=== PATIENT | female | born 1980 | race Two or more races ===

== ENCOUNTER 2024-04-27 09:14 | Outpatient (RCR) | payer MEDICAID, SELFPAY ==
--- NOTE | 2024-04-27 09:42 | PTNOTE_ITS ---
PT OP Initial Eval Patient Information Outpatient Physical Therapy Treatment Date: 04/27/24 Visit Reasons: Fracture of right little finger Medical Diagnosis: S62.636A Treatment Dx #1: Dec ROM R 5th digit DIP Start of Care: 04/27/24 Date of Onset: 08/06/23 Smoking Status Smoking Status: Never smoker Initial Assessment Subjective: Pt is 43 yr old bruneian speaking female s/p displaced FX of distal phalanx of R 5th digit and subsequent k wire pinning that was removed 09/17/23. Pt reports that digit doesn't bend fully with making a fist and weakness with gripping. She can do ADL's and HH chores sometimes with pain in that digit. 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 Pt is lacking 5 lbs of mobile heavy equipment mechanic strength compared to the L hand. Pt may benefit from skilled therapy to improve DIP flexion but rehab potential is guarded due to time since K-wire removal in September. Short Term and [facility] Goals 1. Ind with HEP 2. Improved DIP flexion to at least 50 deg to make full fist 3. Improved mobile heavy equipment mechanic strength of R to at least 45 lbs Treatment Plan 1. Manual therapy ? 2. Therex ? 3. Modalities as indicated, estim, moist heat, ice Frequency and Duration: 1-2x a week for 12 visits Certification Dates: 04/27/24 to 07/24/24 Procedure Charges OP PT Eval Mod Complex 30 minutes: Yes
== END 2024-05-10 23:59 | disposition home or self-care (01) ==
LOC: CPTX 09:14
PROVIDERS: PCP Surgery; Referring Provider Surgery; Visit Provider Surgery
DX: R53.1 Weakness (principal); S62.636D Displaced fracture of distal phalanx of right little finger, subsequent encounter for fracture with routine healing; X58.XXXD Exposure to other specified factors, subsequent encounter
CPT/HCPCS: 97162

== ENCOUNTER 2024-10-27 01:31 | Emergency (ER) | payer MEDICAID, SELFPAY ==
[2024-10-27 01:31] VITALS: BMI 30.2
[2024-10-27 02:11] VITALS: BP 124/79; PULSE 78; RESP 18; TEMP 37.2; O2SAT 98
--- NOTE | 2024-10-27 02:16 | XR_ITS ---
Examination: OB Transvaginal ultrasound of the pelvis, complete Technique: Transvaginal sonographic images pelvis performed using brower scale imaging Exam date and time: October 27, 2024 0242 hours INDICATIONS: Vaginal bleeding beginning one hour ago FINDINGS: Uterus 11.1 cm Pole 1.23 cm corresponds to 7 weeks 3 days gestational age. Cardiac motion 158 BPM Right ovary 3.0 cm arterial flow Left ovary obscured by bowel gas IMPRESSION: Viable intrauterine gestation 7 weeks 3 days.
[2024-10-27 03:30] LABS: Collection Type, Urine Clean Catch
[2024-10-27 03:42] LABS: Basophils % (Auto) 0 % (0-2.5); Eosinophils % (Auto) 0 % (0-10); Hematocrit 30.1 % (36.0-46.0); Hemoglobin 10.1 g/dL (12.0-16.0); Immature Granulocytes % (Auto) 0 % (0-0); Immature Granulocytes Auto 0.03 Thou/mm3 (0.00-0.00); Lymphocytes # (Auto) 1.3 Thou/mm3 (1.0-4.8); Lymphocytes % (Auto) 13 % (10-50); Mean Corpuscular HGB Conc 33.6 g/dl (31.0-37.0); Mean Corpuscular Hemoglobin 27.4 pg (25.0-35.0); Mean Corpuscular Volume 82 fL (80-100); Monocytes # (Auto) 0.6 Thou/mm3 (0.0-0.8); Monocytes % (Auto) 6 % (0-12); Neutrophils # (Auto) 8.1 Thou/mm3 (1.8-7.7); Neutrophils % (Auto) 81 % (37-80); Nucleated Red Blood Cell % 0 /100 WBC (0); Platelet Count 308 Thou/mm3 (140-440); RDW Standard Deviation 40.5 fL (36.4-46.3); Red Blood Count 3.69 Miln/mm3 (4.00-5.20); White Blood Count 10.1 Thou/mm3 (3.6-11.0)
[2024-10-27 03:46] LABS: Amorphous Crystals,Urine Present (Absent); Bacteria,Urine Rare; Bilirubin,Urine Negative (Negative); Blood,Urine 3+ (Negative); Clarity,Urine Clear (Clear/Hazy); Color,Urine Lt-Yellow (Lt Yel-Yel); Glucose, Urine Negative (Negative); Ketones,Urine Negative (Negative); Leukocyte Esterase,Urine Negative (Negative); Nitrite,Urine Negative (Negative); Protein,Urine Negative (Neg - Trace); RBC,Urine 9 /hpf (0-3); Squamous Epithelial Cell,Urine < 1 /hpf (0-5); Urobilinogen,Urine Negative mg/dL (0.0-1.0); WBC,Urine 1 /hpf (0-5)
[2024-10-27 04:06] LABS: Alanine Aminotransferase 23 U/L (10-49); Albumin, Serum 4.4 gm/dL (3.5-5.0); Albumin/Globulin Ratio 1.7 (1.2-2.2); Alkaline Phosphatase 93 U/L (46-116); Anion Gap 8 (7-16); Aspartate Amino Transferase 17 U/L (0-34); BUN/Creatinine Ratio 7 Ratio (12-20); Bilirubin,Total 0.4 mg/dL (0.3-1.2); Blood Urea Nitrogen < 5 mg/dL (9-23); Calcium 9.2 mg/dL (8.3-10.6); Calcium (Corrected) 9.2 mg/dL (8.5-10.1); Carbon Dioxide 23.8 mMol/L (20.0-31.0); Chloride 106 mMol/L (98-107); Creatinine (Component) 0.7 mg/dL (0.6-1.3); Estimated Creatinine Clearance 105.9 mL/min (>60); Globulin 2.6 gm/dL (2.3-3.5); Glucose 97 mg/dL (74-106); Osmolality,Calculated 272 (275-295); Potassium 3.4 mMol/L (3.4-5.1); Sodium 138 mMol/L (136-145); eGFR > 60 See Note
--- NOTE | 2024-10-27 04:51 | PRELIM_ITS ---
Obstetric ultrasound transvaginal. October 27, 2024 0242 hours Clinical history: Cramping/bleeding; 6 weeks. Technique: Real-time ultrasound was performed using Duplex scanning including arterial inflow, venous outflow, color and spectral Doppler analysis of both ovaries. Comparison: No prior study is available for comparison. Findings: There is an intrauterine gestation with a single live fetus of mean gestational age 7 weeks and 3 days based on a crown-rump length (CRL) of 1.2 cm. cardiac activity is present with a heart rate of 158 beats per minute. Estimated due date (JOSSUE) by ultrasound is 12 June 2025. The uterus measures 11 x 7 x 8.4 cm and is within normal limits for gestational age. The right ovary measures 2.9 x 2.3 x 2.2 cm (volume 8 cm??) and is unremarkable with normal arterial flow. The left ovary was not visualized due to overlying bowel gas. There is no free fluid in the pelvis. A cyst measuring 1.4 x 1.1 x 1.1 cm was seen in the cervix. Yolk sac is visualized. Impression: Intrauterine gestation with a single live fetus, consistent with 7 weeks and 3 days gestational age (CRL: 1.23 cm) heart rate: 158 bpm JOSSUE by ultrasound: 12-Jun-2025. Normal right ovary; left ovary not visualized. Cervical cyst noted. No free fluid in the pelvis. Report Electronically Signed By: Luca Meadows 10/27/2024 4:51:22 AM [EST]
[2024-10-27 04:52] LABS: Beta HCG,Quantitative 98246 mIU/mL (<5.0)
[2024-10-27 05:09] VITALS: BP 125/74; PULSE 74; RESP 18; TEMP 36.8; O2SAT 98
--- NOTE | 2024-10-27 05:22 | EDNOTE_ITS ---
ED OB Contraction Preg RMI/HPI General Chief complaint: Vaginal Bleeding Stated complaint: VAGINAL BLEEDING, 6 WKS Time Seen by Provider: 10/27/24 01:37 Arrival date/time: 10/27/24 01:31 44F at approximately 6 weeks and with no significant PMH presents to ED with 1 day of pelvic cramping and vaginal spotting. Patient denies dysuria. Limitations: no limitations Related Data Home Medications ?Medication ?Instructions ?Recorded ?Confirmed losartan 25 mg tablet 25 mg PO QDAY 04/08/2104/08 omeprazole 40 mg capsule,delayed 40 mg PO QDAY 1 04/08/21 release Previous Rx's ?Medication ?Instructions ?Recorded acetaminophen 325 mg capsule 650 mg (2 x 325 mg) PO QI D PRN 04/08/21 (Tylenol) fever or pain #30 caps Allergies Allergy/AdvReac Type Severity Reaction Status Date / Time No Known Allergies Allergy Verified 10/27/24 01:31 Review of Systems Review of Systems Systems Reviewed: All systems reviewed, normal except as documented Constitutional Constitutional: Reports system reviewed and no additional complaints, except as documented, Denies fever(s) and Denies headache(s) ENT Ears, Nose, Mouth, and Throat: Denies disequilibrium and Denies headache(s) Cardiovascular Cardiovascular: Reports system reviewed and no additional complaints, except as documented, Denies chest pain and Denies dyspnea Respiratory Respiratory: Reports system reviewed and no additional complaints, except as documented, Denies cough and Denies dyspnea Gastrointestinal Gastrointestinal: Reports system reviewed and no additional complaints, except as documented, Denies abdominal pain, Denies nausea and Denies vomiting Musculoskeletal Musculoskeletal: Reports as per HPI and Reports arthralgias Neurologic Neurologic: Reports system reviewed and no additional complaints, except as documented, Denies confusion, Denies disequilibrium and Denies headache(s) Psychiatric Psychiatric: Denies confusion Past Medical History Past Medical History CARDIAC: Negative Cardiac Disorders RESPIRATORY: Negative Asthma GENITOURINARY: Negative Renal Disease ENDOCRINE: Negative Diabetes Mellitus Type 2 HEMATOLOGIC: Negative Sickle Cell Disease Social History SMOKING STATUS: Never smoker ED Exam General Limitations: Present no limitations General appearance: Present alert and in no apparent distress Head Head exam: Present atraumatic Eye Eye exam: Present normal appearance, PERRL and EOMI ENT ENT exam: Present normal exam, normal oropharynx and mucous membranes moist Neck Neck exam: Present normal inspection, full ROM and trachea midline Chest Chest inspection: Present normal inspection and symmetric chest wall rise Respiratory Respiratory exam: Present normal lung sounds bilaterally Cardiovascular Cardiovascular exam: Present regular rate, normal rhythm and normal heart sounds Abdominal Exam Abdominal exam: Present soft and normal bowel sounds Extremities Exam Extremities exam: Present normal inspection and full ROM Back Exam Back exam: Present normal inspection and full ROM Neurological Exam Neurological exam: Present alert, oriented X3 and CN II-XII intact Psychiatric Psychiatric exam: Present normal affect and normal mood Skin Skin exam: Present warm, dry, intact and normal color Course Quality Measures none Orders Category Date Time Status US OB transvaginal Stat Exams 10/27/24 02:16 Taken ABO/RH Type Stat Lab 10/27/24 03:22 Completed Beta HCG,Quantitative Stat Lab 10/27/24 03:22 Completed CBC Stat Lab 10/27/24 03:22 Completed CMP [Comprehensive Metabolic Panel] Stat Lab 10/27/24 03:22 Completed UA [Urinalysis] Stat Lab 10/27/24 02:52 Completed Urine Culture Stat Lab 10/27/24 02:52 Received Vital Signs Vital signs: Vital Signs Temperature 99 F 10/27/24 02:11 Pulse Rate 78 10/27/24 02:11 Respiratory Rate 18 10/27/24 02:11 Blood Pressure 124/79 10/27/24 02:11 Pulse Oximetry (%) 98 10/27/24 02:11 Oxygen Delivery Method Room Air 10/27/24 02:11 O2 at 98% on RA and WNLs Vaginal Bleeding MDM Narrative MDM Narrative: 44F at approximately 6 weeks and with no significant PMH presents to ED with 1 day of pelvic cramping and vaginal spotting. Patient denies dysuria. Physical exam reveals well-appearing female. Patient is afebrile, calm, and alert. US normal IUP with normal FHR. Beta HCG around 90k and WNLs. B+. CMP and CBC unremarkable. 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 Patient data External records reviewed:: [facility] previous records Clinical information provided by:: patient Social determinants that could affect healthcare access:: none Patient has the following chronic illnesses:: none How is presenting disease/condition affected by chronic disease/condition?: no chronic disease Evaluation data The following diagnostics were reviewed and interpreted by me:: lab results and radiology exam(s) Lab and/or radiology exams considered but not ordered:: ordered Interpretation Summary: above Medications / Prescriptions Medications or Prescriptions considered but not ordered:: not ordered Medication administrations:: n/a Consultations Consultation(s) initiated? (list below): No Diagnosis Vaginal Bleeding Differential Diagnosis: missed , threatened , dysfunctional uterine bleeding, menometrorrhagia, incomplete , ectopic without intrauterine and vaginal bleeding Most likely diagnosis given after review of the tests above:: vaginal bleeding Admission Indicated Admission indicated?: not indicated Admission Request Was there a request for admission?: No Disposition Plan Disposition Plan: Discharge Discharge Attestation Discharge Attestation: The patient and all family members were given an opportunity to ask questions and understood the discharge instructions. Discharge instructions specifically effects, indications for sooner follow up or return to the emergency department, and the expected course of current diagnosis. Patient condition: Stable Discharge Plan Plan Patient Disposition: HOME (Self Care) Discharge Disposition comment: Stable Prescriptions/Referrals Prescriptions/Med Rec: No Action omeprazole 40 mg Capsule,Delayed Release(Dr/Ec) 40 mg PO QDAY losartan 25 mg Tablet 25 mg PO QDAY acetaminophen [Tylenol] 325 mg capsule 650 mg PO QID PRN (Reason: fever or pain) Qty: 30 0RF Referrals: Jossie Wren MD [Primary Care Provider] - In 1 week Problem List Clinical Impression: Vaginal bleeding Patient/Caregiver Discharge Instructions Education Materials: Bleeding During Early Additional Instructions: Please follow-up with PCP/OBGYN within 24-48 hours and return immediately if symptoms worsen. Can repeat HCG in 48-72 hours to see trend. Print Language: Japanese Stand Alone Forms: Patient Portal Info Letter ADDIE/DEYA Supervising Physician ELLA Supervising Physician: Dr. Cassidy
== END 2024-10-27 05:13 | disposition home or self-care (01) ==
PROVIDERS: Physician Assistant; Emergency Provider Emergency Medicine; PCP Obstetrics & Gynecology
DX: O20.9 Hemorrhage in early pregnancy, unspecified (principal); Z3A.01 Less than 8 weeks gestation of pregnancy
CPT/HCPCS: 36415; 76817; 80053; 81001; 84702; 85025; 86900; 86901; 87086; 99284

== ENCOUNTER 2025-01-12 16:41 | Emergency (ER) | payer MEDICAID, SELFPAY ==
[2025-01-12 16:44] VITALS: BMI 37.0
--- NOTE | 2025-01-12 16:48 | EKG_ITS ---
[facility] Test Date: 2025-01-12 Pat Name: VAL MOJICA Department: Room: - Gender: Female Decision Support Manager: : 1980 Requested By: ED Temporary Provider Order Number: [id number] Reading MD: ED Temporary Provider Measurements Intervals [place] Rate: 69 P: 54 [place]: 149 QRS: 28 QRSD: 88 T: 47 QT: 378 QTc: 406 Interpretive Statements SINUS RHYTHM No previous ECG available for comparison /store/S0/[id number]/ecg/[id number].pdf
--- NOTE | 2025-01-12 16:56 | PC.NURSE ---
CALLED [facility]. IF POWDER AND INHALED SUPPORTIVE CARE, O2 PRN, CXR, NEBS PRN, CARDIAC WORKUP FOR CHEST PAIN AND FOLOOW UP WITH OB DUE TO . IF INGESTED CAN GET N/V OR LUZ, IF GOT IN EYES THEN IRRIGATE X15 MINUTES AND THEN DO FLOURESENE EXAM.
[2025-01-12 16:59] VITALS: BP 145/86; PULSE 76; RESP 18; TEMP 37; O2SAT 96
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
[2025-01-12 17:20] LABS: Basophils # (Auto) 0.0 Thou/mm3 (0.0-0.2); Basophils % (Auto) 0 % (0-2.5); Eosinophils # (Auto) 0.1 Thou/mm3 (0.0-0.5); Eosinophils % (Auto) 1 % (0-10); Hematocrit 31.3 % (36.0-46.0); Hemoglobin 10.3 g/dL (12.0-16.0); Immature Granulocytes Auto 0.03 Thou/mm3 (0.00-0.00); Lymphocytes # (Auto) 1.7 Thou/mm3 (1.0-4.8); Lymphocytes % (Auto) 19 % (10-50); Mean Corpuscular HGB Conc 32.9 g/dl (31.0-37.0); Mean Corpuscular Hemoglobin 27.6 pg (25.0-35.0); Mean Corpuscular Volume 84 fL (80-100); Monocytes # (Auto) 0.7 Thou/mm3 (0.0-0.8); Monocytes % (Auto) 8 % (0-12); Neutrophils # (Auto) 6.3 Thou/mm3 (1.8-7.7); Neutrophils % (Auto) 71 % (37-80); Nucleated Red Blood Cell # 0.00 Thou/mm3 (0.00-0.00); Nucleated Red Blood Cell % 0 /100 WBC (0); Platelet Count 255 Thou/mm3 (140-440); RDW Standard Deviation 42.5 fL (36.4-46.3); Red Blood Count 3.73 Miln/mm3 (4.00-5.20); White Blood Count 9.0 Thou/mm3 (3.6-11.0)
[2025-01-12 17:37] LABS: Alanine Aminotransferase 15 U/L (10-49); Albumin, Serum 4.0 gm/dL (3.5-5.0); Albumin/Globulin Ratio 1.5 (1.2-2.2); Alkaline Phosphatase 231 U/L (46-116); Anion Gap 9 (7-16); Aspartate Amino Transferase 19 U/L (0-34); BUN/Creatinine Ratio 10 Ratio (12-20); Bilirubin,Total 0.2 mg/dL (0.3-1.2); Blood Urea Nitrogen 6 mg/dL (9-23); Calcium 9.9 mg/dL (8.3-10.6); Calcium (Corrected) 9.9 mg/dL (8.5-10.1); Carbon Dioxide 22.8 mMol/L (20.0-31.0); Chloride 105 mMol/L (98-107); Creatinine (Component) 0.6 mg/dL (0.6-1.3); Estimated Creatinine Clearance 122.6 mL/min (>60); Globulin 2.6 gm/dL (2.3-3.5); Glucose 89 mg/dL (74-106); Osmolality,Calculated 270 (275-295); Potassium 3.7 mMol/L (3.4-5.1); Sodium 137 mMol/L (136-145); Total Protein 6.6 gm/dL (5.7-8.2); Troponin I < 0.002 ng/mL (0.0-0.045); eGFR > 60 See Note
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
--- NOTE | 2025-01-12 19:25 | XR_ITS ---
Examination: Complete OB ultrasound greater than 14 weeks Date and time of exam: January 12, 2025, 1929 hrs. Indications: Headaches today, history pelvic cramping and bleeding Findings: Viable intrauterine single fetus with single amniotic sac presentation breech Cardiac motion 133 BPM Placenta anterior fundal grade 1 Umbilical cord insertion 3 vessel seen Amniotic fluid index adequate spine variable Cervix 4.2 cm Right ovary obscured by bowel gas Left ovary 3.8 cm arterial flow. Composite estimated gestational age based on BPD, head circumference, abdominal circumference, femur length is 19 weeks 2 days Estimated weight 275 g Survey of intracranial anatomy, spinal anatomy, abdominal anatomy, four-chamber heart performed with no abnormalities identified. Impression: Viable intrauterine gestation breech presentation.
[2025-01-12 20:12] LABS: Beta HCG,Quantitative 8010 mIU/mL (<5.0)
== END 2025-01-12 21:11 | disposition home or self-care (01) ==
PROVIDERS: Nurse Practitioner Primary Care; Emergency Provider Emergency Medicine; PCP Obstetrics & Gynecology
DX: O9A.212 Injury, poisoning and certain other consequences of external causes complicating pregnancy, second trimester (principal); T65.891A Toxic effect of other specified substances, accidental (unintentional), initial encounter; O36.8120 Decreased fetal movements, second trimester, not applicable or unspecified; Z3A.19 19 weeks gestation of pregnancy
CPT/HCPCS: 36415; 71045; 76805; 80053; 84484; 84702; 85025; 93005; 99283